=== PATIENT | male | born 1980 | race Caucasian/White ===

== ENCOUNTER 2025-01-06 11:32 | Emergency (ER) | payer BC, OTHER ==
[2025-01-06] MEDS: fentaNYL 100 MCG/2 ML SDV IVPUSH ONE ×2 (11:56→13:12)
[2025-01-06] MEDS: Lactated Ringers 1,000 ML IV ONE (11:56)
[2025-01-06 12:08] LABS: BASOPHILS PERCENT AUTO 0.2 % (0.0-1.0); EOSINOPHILS ABSOLUTE AUTO 0.2 K/mm3 (0.0-0.4); EOSINOPHILS PERCENT AUTO 1.5 % (0.0-6.0); HEMATOCRIT 42.5 % (42.0-52.0); HEMOGLOBIN 14.3 gm/dl (14.0-18.0); IMMATURE GRAN ABSOLUTE AUTO 0.04 K/mm3 (0.00-0.05); IMMATURE GRAN PERCENT AUTO 0.4 % (0.0-0.4); LYMPHOCYTES ABSOLUTE AUTO 1.1 K/mm3 (1.0-4.8); LYMPHOCYTES PERCENT AUTO 10.3 % (24.0-44.0); MEAN CORPUSCULAR HEMOGLOBIN 31.7 pg (28.0-32.0); MEAN CORPUSCULAR HGB CONC 33.6 g/dl (32.0-36.0); MEAN CORPUSCULAR VOLUME 94.2 fl (83.0-99.0); MEAN PLATELET VOLUME 9.4 fl (9.4-12.4); MONOCYTES ABSOLUTE AUTO 0.7 K/mm3 (0.0-0.8); MONOCYTES PERCENT AUTO 6.5 % (0.0-8.0); NEUTROPHILS ABSOLUTE AUTO 8.2 K/mm3 (1.8-7.7); NEUTROPHILS PERCENT AUTO 81.1 % (41.0-71.0); PLATELET COUNT,PLT 213 K/mm3 (150-400); RED BLOOD CELL COUNT 4.51 M/mm3 (4.52-5.90); WHITE BLOOD CELL COUNT,WBC 10.15 K/mm3 (3.9-11.3)
[2025-01-06] MEDS: Iopamidol 612 MG/ML 100 ML Bottle IVPUSH ONE (12:14)
[2025-01-06] MEDS: Sodium Chloride 0.9% 10 ML Syringe FLUSH ONE (12:15)
[2025-01-06 12:29] LABS: A/G RATIO 1.3 (1-2); ALBUMIN 3.6 g/dl (3.4-5.0); BILIRUBIN TOTAL 0.7 mg/dL (0.2-1.0); BUN/CREATININE RATIO 21.3 (14-18); C-REACTIVE PROTEIN 1.65 mg/dL (<0.30); CALCIUM 8.9 mg/dL (8.5-10.1); CREATININE 0.8 mg/dL (0.7-1.3); EST CRCL DRUG DOSING (CG) 126.81 mL/min; PROTEIN TOTAL,TP 6.4 g/dl (6.4-8.2)
[2025-01-06 12:32] LABS: LACTIC ACID 1.5 mmol/L (0.4-2.0)
[2025-01-06] MEDS: Sodium Chloride 0.9% 10 ML Syringe FLUSH PRN (13:13)
[2025-01-06] MEDS ORDERED: Naloxone 0.4 MG/ML SDV IVPUSH PRN (13:53)
[2025-01-06] MEDS: HYDROmorphone 1 MG/ML Syringe IVPUSH ONE (14:00)
[2025-01-06] MEDS: Ketorolac 30 MG/ML SDV IVPUSH ONE (14:00)
[2025-01-06] MEDS: Piperacillin/Tazobactam 4.5 GM in Sodium Chloride 0.9% 100 ML IV ONE (14:01)
[2025-01-06 15:04] LABS: APPEARANCE,URINE CLEAR (Clear); BILIRUBIN,URINE NEGATIVE (Negative); COLOR,URINE YELLOW (Yellow); GLUCOSE,URINE NEGATIVE (Negative); KETONES,URINE NEGATIVE (Negative); LEUKOCYTE ESTERASE,URINE NEGATIVE (Negative); NITRITE,URINE NEGATIVE (Negative); OCCULT BLOOD,URINE NEGATIVE (Negative); PH,URINE 8.5 (5.0-8.0); PROTEIN,URINE TRACE (Negative); UROBILINOGEN,URINE 0.2 (0.2-1.0)
[2025-01-06 15:31] LABS: RBC,URINE 0-5 /hpf (0-5); SQUAMOUS EPITHELIAL CELLS,UR NOT SEEN /hpf (0-5); WBC,URINE 0-5 /hpf (0-5)
[2025-01-06 15:32] LABS: BACTERIA,URINE MODERATE /hpf (FEW); MUCUS,URINE FEW /hpf (FEW)
== END 2025-01-06 16:30 | disposition home or self-care (01) ==
LOC: JD.ED 11:32
DX: K57.32 Diverticulitis of large intestine without perforation or abscess without bleeding (principal); Z79.899 Other long term (current) drug therapy
CPT/HCPCS: 36415; 74177; 80053; 81001; 83605; 83690; 85025; 86140; 96361; 96365; 96375; 96376; 99284; J1171; J1885; J2543; J3010; J7120; Q9967